=== PATIENT | female | born 1960 | race African-American/Black ===

== ENCOUNTER 2022-03-31 04:30 | Day surgery (SDC) | payer MEDICARE, OTHER ==
[2022-03-26 14:11] VITALS: BMI 37.8
[2022-03-31] MEDS ORDERED: LIDOCAINE HCL/PF 1% SDV 5ML VIAL ONE (07:28)
[2022-03-31] MEDS ORDERED: BUPIVACAINE HCL/PF 0.75% 10 ML VIAL ONE (07:28)
[2022-03-31] MEDS ORDERED: LIDOCAINE HCL 1% PRESERVATIVE FREE - 30ML VIAL IJ ONE (11:51)
[2022-03-31] MEDS ORDERED: BUPIVACAINE HCL/PF 0.75% 10 ML VIAL NR ONE ×2 (11:51→11:54)
[2022-03-31 12:36] VITALS: BP 123/77; PULSE 74; TEMP 98.1
== END 2022-03-31 12:30 | disposition home or self-care (01) ==
LOC: JASU-SURG 04:30
PROVIDERS: ATTEND Pain Medicine Pain Medicine
PROC: 3E0T33Z Introduction of Anti-inflammatory into Peripheral Nerves and Plexi, Percutaneous Approach (ICD-10-PCS; 2022-03-31)
PROC: 3E0T3BZ Introduction of Anesthetic Agent into Peripheral Nerves and Plexi, Percutaneous Approach (ICD-10-PCS; principal; 2022-03-31 10:15)
DX: M47.816 Spondylosis without myelopathy or radiculopathy, lumbar region (principal)
CPT/HCPCS: 76000-TC-FY

== ENCOUNTER 2022-06-30 05:13 | Day surgery (SDC) | payer MEDICARE, OTHER ==
[2022-06-26 15:10] VITALS: BMI 36.6
[~2022-06-30 05:13] MED LIST: BUPIVACAINE HCL/PF 0.75% 10 ML VIAL NR ONE; LIDOCAINE HCL 1% PRESERVATIVE FREE - 30ML VIAL NR ONE
[2022-06-30] MEDS ORDERED: LIDOCAINE HCL/PF 1% SDV 5ML VIAL ONE (07:24)
[2022-06-30] MEDS ORDERED: BUPIVACAINE HCL/PF 0.75% 10 ML VIAL ONE (07:24)
[2022-06-30 12:10] VITALS: RESP 20
[2022-06-30 12:50] VITALS: BP 140/70; PULSE 70; TEMP 98.6
== END 2022-06-30 12:50 | disposition home or self-care (01) ==
LOC: JASU-SURG 05:13
PROVIDERS: ATTEND Pain Medicine Pain Medicine
PROC: BR16YZZ Fluoroscopy of Lumbar Facet Joint(s) using Other Contrast (ICD-10-PCS; 2022-06-30)
PROC: 3E0T3BZ Introduction of Anesthetic Agent into Peripheral Nerves and Plexi, Percutaneous Approach (ICD-10-PCS; principal; 2022-06-30 10:00)
DX: M47.816 Spondylosis without myelopathy or radiculopathy, lumbar region (principal)
CPT/HCPCS: 76000-TC-FY

== ENCOUNTER 2022-08-28 04:08 | Day surgery (SDC) | payer MEDICARE, OTHER ==
[2022-08-27 13:38] VITALS: BMI 36.6
[2022-08-28] MEDS ORDERED: LIDOCAINE HCL/PF 1% SDV 5ML VIAL ONE (07:32)
[2022-08-28] MEDS ORDERED: BUPIVACAINE HCL/PF 0.75% 10 ML VIAL ONE (07:32)
[2022-08-28] MEDS ORDERED: BUPIVACAINE HCL/PF 0.5% (5MG/ML) 10 ML VIAL ONE (07:32)
[2022-08-28] MEDS ORDERED: LIDOCAINE HCL/PF 2% SDV 5ML VIAL ONE (07:39)
[2022-08-28 09:06] VITALS: RESP 18
[2022-08-28] MEDS ORDERED: LIDOCAINE HCL/PF 2% SDV 5ML VIAL INF ONE (10:15)
[2022-08-28] MEDS ORDERED: DEXAMETHASONE SOD PHOSPHATE 10 MG/1 ML VIAL IVPUSH ONE (10:16)
[2022-08-28] MEDS ORDERED: BUPIVACAINE HCL/PF 0.75% 10 ML VIAL NR ONE (10:17)
[2022-08-28 10:55] VITALS: BP 119/55; PULSE 72; TEMP 98.9
== END 2022-08-28 11:20 | disposition home or self-care (01) ==
LOC: JASU-SURG 04:08
PROVIDERS: ATTEND Pain Medicine Pain Medicine
PROC: 3E0T3TZ Introduction of Destructive Agent into Peripheral Nerves and Plexi, Percutaneous Approach (ICD-10-PCS; principal; 2022-08-28 10:00)
PROC: BR16YZZ Fluoroscopy of Lumbar Facet Joint(s) using Other Contrast (ICD-10-PCS; 2022-08-28 10:00)
DX: M47.816 Spondylosis without myelopathy or radiculopathy, lumbar region (principal); I10 Essential (primary) hypertension; E11.9 Type 2 diabetes mellitus without complications; Z79.84 Long term (current) use of oral hypoglycemic drugs
CPT/HCPCS: 76000-TC-FY; J1100

== ENCOUNTER 2022-10-02 04:10 | Day surgery (SDC) | payer MEDICARE, OTHER ==
[2022-09-28 14:33] VITALS: BMI 36.3
[2022-10-02] MEDS ORDERED: BUPIVACAINE HCL/PF 0.75% 10 ML VIAL ONE ×2 (07:28→07:31)
[2022-10-02] MEDS ORDERED: LIDOCAINE HCL/PF 1% SDV 5ML VIAL ONE ×3 (07:28→07:31)
[2022-10-02] MEDS ORDERED: DEXAMETHASONE SOD PHOSPHATE 10 MG/1 ML VIAL ONE ×2 (07:31→07:32)
[2022-10-02] MEDS ORDERED: BUPIVACAINE HCL/PF 0.5% (5MG/ML) 10 ML VIAL ONE (07:31)
[2022-10-02] MEDS ORDERED: LIDOCAINE HCL/PF 2% SDV 5ML VIAL ONE ×2 (07:31)
[2022-10-02] MEDS ORDERED: DEXAMETHASONE SOD PHOSPHATE 10 MG/1 ML VIAL IVPUSH ONE (13:00)
[2022-10-02] MEDS ORDERED: LIDOCAINE HCL 1%, 10 MG/ML (50 mL VIAL) INF ONE (13:01)
[2022-10-02] MEDS ORDERED: LIDOCAINE HCL/PF 2% SDV 5ML VIAL INF ONE (13:01)
[2022-10-02] MEDS ORDERED: BUPIVACAINE HCL/PF 0.75% 10 ML VIAL NR ONE (13:02)
[2022-10-02 14:06] VITALS: BP 146/85; PULSE 80; RESP 20; TEMP 97.8
== END 2022-10-02 14:33 | disposition home or self-care (01) ==
LOC: JASU-SURG 04:10
PROVIDERS: ATTEND Pain Medicine Pain Medicine
PROC: 3E0T3TZ Introduction of Destructive Agent into Peripheral Nerves and Plexi, Percutaneous Approach (ICD-10-PCS; principal; 2022-10-02 11:45)
DX: M47.816 Spondylosis without myelopathy or radiculopathy, lumbar region (principal)
CPT/HCPCS: 76000-TC-FY; J1100

== ENCOUNTER 2022-10-13 06:26 | Emergency (ER) | payer MEDICARE, OTHER ==
[2022-10-13 06:50] VITALS: BP 114/70; PULSE 92; RESP 19; TEMP 98.6; BMI 36.6
[2022-10-13] MEDS ORDERED: LIDOCAINE 5% TOPICAL PATCH TP ONE (09:13)
[2022-10-13] MEDS ORDERED: IBUPROFEN 600 MG TABLET (FP) PO ONE ×2 (09:13→09:41)
[2022-10-13] MEDS ORDERED: LIDOCAINE 5% TOPICAL PATCH ONE (09:41)
[2022-10-13] MEDS ORDERED: LIDOCAINE PATCH REMOVAL MC SCH (22:00)
== END 2022-10-13 09:47 | disposition home or self-care (01) ==
LOC: JER 06:26
DX: B02.9 Zoster without complications (principal)
CPT/HCPCS: 99283-25

== ENCOUNTER 2022-12-08 04:20 | Day surgery (SDC) | payer MEDICARE, OTHER ==
[2022-11-09 15:36] VITALS: BMI 36.6
[2022-12-08] MEDS ORDERED: DEXAMETHASONE SOD PHOSPHATE 10 MG/1 ML VIAL ONE (11:06)
[2022-12-08 11:46] VITALS: BP 108/64; PULSE 70; RESP 16; TEMP 96.9
== END 2022-12-08 12:06 | disposition home or self-care (01) ==
LOC: JASU-SURG 04:20
PROVIDERS: ATTEND Pain Medicine Pain Medicine
PROC: 3E0R3BZ Introduction of Anesthetic Agent into Spinal Canal, Percutaneous Approach (ICD-10-PCS; 2022-12-08)
PROC: 3E0R33Z Introduction of Anti-inflammatory into Spinal Canal, Percutaneous Approach (ICD-10-PCS; principal; 2022-12-08 11:00)
DX: M54.16 Radiculopathy, lumbar region (principal); M48.061 Spinal stenosis, lumbar region without neurogenic claudication; I10 Essential (primary) hypertension; E11.9 Type 2 diabetes mellitus without complications; Z79.84 Long term (current) use of oral hypoglycemic drugs
CPT/HCPCS: 76000-TC-FY; J1100

== ENCOUNTER 2023-01-22 03:58 | Day surgery (SDC) | payer MEDICARE, OTHER ==
[2023-01-20 16:00] VITALS: BMI 36.6
[~2023-01-22 03:58] MED LIST changes: +ACETAMINOPHEN 500 MG TABLET (FP) PO PRN; -BUPIVACAINE HCL/PF 0.75% 10 ML VIAL NR ONE; -LIDOCAINE HCL 1% PRESERVATIVE FREE - 30ML VIAL NR ONE
[2023-01-22] MEDS ORDERED: BUPIVACAINE HCL/PF 0.75% 10 ML VIAL ONE (07:30)
[2023-01-22] MEDS ORDERED: LIDOCAINE HCL/PF 1% SDV 5ML VIAL ONE (07:30)
[2023-01-22] MEDS ORDERED: ACETAMINOPHEN 500 MG TABLET (FP) PO PRN (09:24)
[2023-01-22] MEDS ORDERED: LIDOCAINE HCL 1% PRESERVATIVE FREE - 30ML VIAL IJ ONE ×2 (14:10→14:11)
[2023-01-22 14:48] VITALS: TEMP 97.8
[2023-01-22 17:29] VITALS: BP 119/70; PULSE 69; RESP 17
== END 2023-01-22 15:20 | disposition home or self-care (01) ==
LOC: JASU-SURG 03:58
PROVIDERS: ATTEND Pain Medicine Pain Medicine
PROC: 01HY3MZ Insertion of Neurostimulator Lead into Peripheral Nerve, Percutaneous Approach (ICD-10-PCS; principal; 2023-01-22 13:15)
DX: G89.4 Chronic pain syndrome (principal)
CPT/HCPCS: 64555; C1778; 76000-TC-FY

== ENCOUNTER 2023-02-16 04:11 | Day surgery (SDC) | payer MEDICARE, OTHER ==
[2023-02-12 11:37] VITALS: BMI 38.4
[2023-02-16] MEDS ORDERED: LIDOCAINE HCL/PF 1% SDV 5ML VIAL ONE (07:13)
[2023-02-16] MEDS ORDERED: ACETAMINOPHEN 500 MG TABLET (FP) PO PRN (08:58)
[2023-02-16] MEDS ORDERED: LIDOCAINE HCL 1% PRESERVATIVE FREE - 30ML VIAL IJ ONE (09:18)
[2023-02-16 09:47] VITALS: RESP 17
[2023-02-16 11:27] VITALS: BP 129/70; PULSE 60; TEMP 98.2
== END 2023-02-16 10:30 | disposition home or self-care (01) ==
LOC: JASU-SURG 04:11
PROVIDERS: ATTEND Pain Medicine Pain Medicine
PROC: 01HY3MZ Insertion of Neurostimulator Lead into Peripheral Nerve, Percutaneous Approach (ICD-10-PCS; principal; 2023-02-16 08:45)
DX: G89.4 Chronic pain syndrome (principal); M54.50 Low back pain, unspecified
CPT/HCPCS: 64555; C1778; 76000-TC-FY

== ENCOUNTER 2024-06-30 04:32 | Day surgery (SDC) | payer MEDICARE, OTHER ==
[2024-06-28 10:13] VITALS: BMI 36.6
[2024-06-30] MEDS ORDERED: LIDOCAINE HCL/PF 1% SDV 5ML VIAL ONE (07:18)
[2024-06-30] MEDS ORDERED: ACETAMINOPHEN 500 MG TABLET (FP) PO PRN (09:09)
[2024-06-30] MEDS ORDERED: PROPOFOL 20 ML ONE (10:08)
[2024-06-30] MEDS ORDERED: LIDOCAINE HCL/PF 2% SDV 5ML VIAL ONE (10:08)
[2024-06-30] MEDS ORDERED: DEXAMETHASONE SOD PHOSPHATE 4 MG/1 ML VIAL ONE (10:08)
[2024-06-30] MEDS ORDERED: ONDANSETRON 4 MG/2 ML VIAL ONE (10:08)
[2024-06-30] MEDS ORDERED: MIDAZOLAM HCL 2 MG/2 ML SINGLE DOSE VIAL ONE (10:08)
[2024-06-30] MEDS ORDERED: ROCURONIUM BROMIDE 50 MG/5 ML SYRINGE ONE (10:08)
[2024-06-30] MEDS ORDERED: SUGAMMADEX SODIUM 200 MG/2 ML VIAL ONE (10:08)
[2024-06-30] MEDS ORDERED: oxyCODONE HCL 5 MG TABLET PO PRN (10:31)
[2024-06-30] MEDS ORDERED: ONDANSETRON 4 MG/2 ML VIAL IVPUSH PRN (10:31)
[2024-06-30] MEDS: LIDOCAINE HCL 1% PRESERVATIVE FREE - 30ML VIAL IJ ONE (11:16)
[2024-06-30] MEDS: LIDOCAINE HCL/PF 2% SDV 5ML VIAL INF ONE (11:16)
[2024-06-30] MEDS: LACTATED RINGERS SOLUTION 1,000 ML IV SCH (12:46)
[2024-06-30 14:13] VITALS: TEMP 97.1
[2024-06-30 14:34] VITALS: BP 143/88; PULSE 73; RESP 17
== END 2024-06-30 17:05 | disposition home or self-care (01) ==
LOC: JASU-SURG 04:32
PROVIDERS: ATTEND Pain Medicine Pain Medicine
PROC: 015B0ZZ Destruction of Lumbar Nerve, Open Approach (ICD-10-PCS; principal; 2024-06-30 10:00)
DX: M54.51 Vertebrogenic low back pain (principal)
CPT/HCPCS: 76000-TC-FY; 82962; 94760